=== PATIENT | female | born 2000 | race Caucasian/White ===

== ENCOUNTER 2020-08-24 02:02 | Emergency (ER) | payer MEDICAID ==
[~2020-08-24] VITALS: Ht 160 cm; Wt 56.7 kg
[2020-08-24 02:09] VITALS: BP 125/76
[2020-08-24] MEDS ORDERED: PENICILLIN G BENZATHINE L-A 1.2 MU/2 ML SYR IM ONE (02:20)
[2020-08-24] MEDS ORDERED: cefTRIAXone 500 MG in LIDOCAINE MPF 1% 1 ML IM ONE (02:20)
--- NOTE | 2020-08-24 02:20 | NUR ---
PATIENT PRESENTS TO ED WITH REQUEST TO BE TESTED FOR STD. . PT C/O BURNING IN VAGINAL AREA . DENIES N/V/D; SKIN IS PINK/WARM/DRY; AAOX4 WITH EVEN AND STEADY GAIT; LUNGS CLEAR BL; HR EVEN AND REGULAR; PT DENIES ANY FEVER, CP, SOB, OR COUGH AT THIS TIME; PATIENT STATES PAIN OF 0/10 AT THIS TIME; VSS; ER MD MADE AWARE OF PT STATUS.
--- NOTE | 2020-08-24 02:24 | NUR ---
LAB AT BEDSIDE
[2020-08-24] MEDS ORDERED: cefTRIAXone 500 MG VIAL ONE (02:26)
[2020-08-24] MEDS ORDERED: LIDOCAINE MPF 1% 5 ML ONE (02:27)
[2020-08-24 02:34] LABS: APPEARANCE,URINE CLEAR (CLEAR); BILIRUBIN,URINE NEGATIVE (NEGATIVE); BLOOD, URINE 3+ (NEGATIVE); COLOR,URINE YELLOW (YELLOW); LEUKOCYTE ESTERASE ,URINE NEGATIVE (NEGATIVE); NITRITE, URINE NEGATIVE (NEGATIVE); UGLUCOSE NEGATIVE (NEGATIVE)
[2020-08-24] MEDS ORDERED: DOXY-487 PO (02:39)
[2020-08-24 02:45] LABS: WBC,URINE 0-5 /HPF (0-5)
[2020-08-24 03:10] VITALS: BP 125/76
--- NOTE | 2020-08-24 03:11 | NUR ---
Patient discharged with v/s stable. Written and verbal after care instructions given and explained. Patient verbalized understanding. Ambulatory with steady gait. All questions addressed prior to discharge. Advised to follow up with PMD.
[2020-08-25 07:32] LABS: RAPID PLASMA REAGIN REACTIVE (Non Reactiv)
--- NOTE | 2020-08-27 12:22 | NUR ---
LATE ENTRY -- +TREPONEMA PALLIDUM ANTIBODIES RESULT RECEVIED. GIVEN TO DR HENDRICKS. SEVERAL ATTEMPTS MADE TO CONTACT PATIENT TO RETURN FOR BICILLIN IM INJECTION. LINE DOES NOT RING. NO OPTION FOR VOICEMAIL.
== END 2020-08-24 03:10 | disposition home or self-care (01) ==
LOC: MED 02:02
DX: A64 Unspecified sexually transmitted disease (principal); F17.200 Nicotine dependence, unspecified, uncomplicated; Z79.899 Other long term (current) drug therapy
CPT/HCPCS: 36415; 81001; 81025; 86592; 86703; 87086; 96372; 99284; J0561; J0696; J2001

== ENCOUNTER 2020-10-03 15:31 | Emergency (ER) | payer MEDICAID ==
[~2020-10-03] VITALS: Ht 160 cm; Wt 56.7 kg
[~2020-10-03 15:31] MED LIST: DOXY-487 PO
[2020-10-03 15:35] VITALS: BP 106/62
[2020-10-03] MEDS ORDERED: ACETAMINOPHEN EXTRA STRENGTH 500 MG TAB PO ONE (15:50)
[2020-10-03] MEDS ORDERED: KETOROLAC 30 MG/ML VIAL IVP ONE (15:55)
[2020-10-03] MEDS ORDERED: NACL 0.9% 1,000 ML IV ONE ×2 (15:55→16:40)
--- NOTE | 2020-10-03 15:56 | NUR ---
20 Y/O FEMALE C/O GENERALIZED BODY PAIN WITH HEADACHE X 2 DAYS. PT STATES BODY ACHES AND CHILLS X 2 DAYS. STATES SHE IS UNABLE TO AMBULATE DUE TO BILATERAL LOWER EXTREMITY PAIN. DENIES COUGH/SOB. PLACED ON BEDSIDE MONITOR. VSS
[2020-10-03] MEDS ORDERED: CIPR500T4 PO (16:46)
[2020-10-03] MEDS ORDERED: IBUP-2213 PO (16:46)
[2020-10-03] MEDS ORDERED: ACET-8386 PO (16:46)
--- NOTE | 2020-10-03 17:00 | NUR ---
PT RESTING WITH EYES CLOSED, BREATHING EVEN AND UNLABORED
[2020-10-03 17:56] VITALS: BP 107/80
--- NOTE | 2020-10-03 17:57 | NUR ---
Patient discharged with v/s stable. Written and verbal after care instructions about urinary tract infection, musculoskeletal pain, influenza given and explained. Patient alert, oriented and verbalized understanding of instructions. Ambulatory with steady gait. All questions addressed prior to discharge. ID band removed. Patient advised to follow up with PMD. Rx of cipro, norco, ibuprofen given. Patient educated on indication of medication including possible reaction and side effects. Opportunity to ask questions provided and answered.
--- NOTE | 2020-10-04 19:18 | NUR ---
LATE ENTRY- NORMAL SALINE 0.9% DISCONTINUED AT 1800
== END 2020-10-03 17:57 | disposition home or self-care (01) ==
LOC: MED 15:31
DX: J10.1 Influenza due to other identified influenza virus with other respiratory manifestations (principal); N39.0 Urinary tract infection, site not specified; Z20.822 Contact with and (suspected) exposure to COVID-19; F17.210 Nicotine dependence, cigarettes, uncomplicated
CPT/HCPCS: 81002; 81025; 87804; 96361; 96374; 99283; J1885; J7030; U0003

== ENCOUNTER 2021-01-25 17:33 | Emergency (ER) | payer MEDICAID ==
[~2021-01-25 17:33] MED LIST changes: +ACET-8386 PO; +CIPR500T4 PO; +IBUP-2213 PO
--- NOTE | 2021-01-25 18:43 | NUR ---
PATIENT LEFT WITHOUT BEING RIAGED. NO FURTHER CARE PROVIDED FOR PATIENT.
[2021-01-26] MEDS ORDERED: BACITRACIN OINT 500 UNITS/GM PKT TP ONE (01:46)
[2021-01-26] MEDS ORDERED: NAPR-54 PO (01:50)
[2021-01-26] MEDS ORDERED: CEPH-588 PO (01:50)
== END 2021-01-25 18:43 | disposition left against medical advice (07) ==
LOC: MED 17:33
DX: M79.676 Pain in unspecified toe(s) (principal); Z53.21 Procedure and treatment not carried out due to patient leaving prior to being seen by health care provider
CPT/HCPCS: 99281

== ENCOUNTER 2021-01-26 00:58 | Emergency (ER) | payer MEDICAID ==
[~2021-01-26] VITALS: Ht 160 cm; Wt 57.6 kg
[2021-01-26 01:03] VITALS: BP 136/81
--- NOTE | 2021-01-26 01:22 | NUR ---
Patient being evaluated by physician at bedside.
[2021-01-26 01:30] VITALS: BP 136/81
[2021-01-26] MEDS ORDERED: LIDOCAINE MPF 1% 10 MG/ML VIAL INJ ONE ×2 (01:30→01:50)
--- NOTE | 2021-01-26 01:42 | NUR ---
VERBAL ORDER FOR SECOND LIDOCAINE 1% RECEIVED FROM DR. FRANCISCO. ORDER CARRIED OUT.
[2021-01-26] MEDS ORDERED: CEPH-588 PO (01:50)
[2021-01-26] MEDS ORDERED: NAPR-54 PO (01:50)
[2021-01-26] MEDS ORDERED: BACITRACIN OINT 500 UNITS/GM PKT TP ONE ×2 (01:50)
--- NOTE | 2021-01-26 01:55 | NUR ---
PT DISCHARGED BY DR. FRANCISCO. ALL DISCHARGE INSTRUCTIONS AND MEDICATION INFORMATION. RX OF KEFLEX AND NAPROSYN GIVEN. PT AMBULATORY TO PERSONAL VEHICLE IN STABLE CONDITION.
== END 2021-01-26 01:55 | disposition home or self-care (01) ==
LOC: MED 00:58
DX: L03.031 Cellulitis of right toe (principal); Z79.899 Other long term (current) drug therapy
CPT/HCPCS: 11740; 99284; J2001

== ENCOUNTER 2022-08-20 15:30 | Emergency (ER) | payer MEDICAID ==
[~2022-08-20] VITALS: Ht 160 cm; Wt 58.1 kg
[~2022-08-20 15:30] MED LIST changes: -ACET-8386 PO; +ACET-8905 PO; +CEPH-588 PO; +NAPR-54 PO
[2022-08-20 15:42] VITALS: BP 130/76
[2022-08-20] MEDS ORDERED: CYCL-711 PO (17:18)
[2022-08-20] MEDS ORDERED: DICL50GE TP (17:18)
[2022-08-20] MEDS ORDERED: IBUP-2213 PO (17:18)
[2022-08-20] MEDS ORDERED: LID5T TP (17:18)
[2022-08-20 18:19] VITALS: BP 130/76
--- NOTE | 2022-08-20 18:19 | NUR ---
Patient discharged with v/s stable. Written and verbal after care instructions given and explained. Patient alert, oriented and verbalized understanding of instructions. Ambulatory with steady gait. All questions addressed prior to discharge. ID band removed. Patient advised to follow up with PMD. Rx of FLEXERIL, ASPERCREME, LIDODERM (SENT) given. Patient educated on indication of medication including possible reaction and side effects. Opportunity to ask questions provided and answered.
== END 2022-08-20 18:19 | disposition home or self-care (01) ==
LOC: MED 15:30
DX: M54.50 Low back pain, unspecified (principal); Z79.899 Other long term (current) drug therapy
CPT/HCPCS: 99283

== ENCOUNTER 2023-07-03 22:23 | Emergency (ER) | payer MEDICAID ==
[~2023-07-03] VITALS: Ht 160 cm; Wt 56.7 kg
[~2023-07-03 22:23] MED LIST changes: +CYCL-711 PO; +DICL50GE TP; +LID5T TP
[2023-07-03 22:31] VITALS: BP 118/81; PULSE 101; RESP 16; TEMP 99.1; O2SAT 98
[2023-07-03 23:06] LABS: APPEARANCE,URINE SL CLOUDY (CLEAR); BILIRUBIN,URINE NEGATIVE (NEGATIVE); BLOOD, URINE NEGATIVE (NEGATIVE); COLOR,URINE YELLOW (YELLOW); LEUKOCYTE ESTERASE ,URINE 1+ (NEGATIVE); NITRITE, URINE NEGATIVE (NEGATIVE); PROTEIN,URINE NEGATIVE (NEGATIVE); UGLUCOSE NEGATIVE (NEGATIVE); UROBILINOGEN,URINE 0.2 EU/dL (0.2 - 1)
[2023-07-03 23:12] VITALS: O2SAT 98
[2023-07-03 23:12] LABS: BACTERIA,URINE 10-30 (MOD) /HPF (None Seen); MUCUS,URINE 1+ /LPF (None Seen); RBC,URINE 0-5 /HPF (0-5); SQUAMOUS EPITHELIAL CELL,UR 0-3 (FEW) /LPF (0-3 (FEW)); WBC,URINE 20-60 /HPF (0-5)
[2023-07-04] MEDS ORDERED: DOXY-745 PO (00:08)
[2023-07-04] MEDS ORDERED: METR-435 PO (00:08)
[2023-07-04] MEDS ORDERED: LIDOCAINE MPF 1% 5 ML ONE (00:14)
[2023-07-04] MEDS ORDERED: cefTRIAXone 500 MG VIAL ONE (00:14)
[2023-07-04] MEDS: cefTRIAXone 500 MG in LIDOCAINE MPF 1% 1 ML IM ONE (00:16)
[2023-07-04 00:36] VITALS: BP 117/75; PULSE 95; RESP 18; TEMP 99; O2SAT 98
== END 2023-07-04 00:36 | disposition home or self-care (01) ==
LOC: MED 22:23
DX: N39.0 Urinary tract infection, site not specified (principal); N76.0 Acute vaginitis; B96.89 Other specified bacterial agents as the cause of diseases classified elsewhere; Z79.899 Other long term (current) drug therapy
CPT/HCPCS: 36415; 81001; 81025; 86703; 87086; 87210; 87491; 87529; 96372; 99283; J0696; J2001; 81002